=== PATIENT | male | born 1955 | race Caucasian/White ===

== ENCOUNTER 2020-08-07 06:30 | Day surgery (SDC) | payer MEDICARE ==
[2020-08-04 11:50] VITALS: BP 140/80
[2020-08-04 12:20] LABS: BASOPHILS % (AUTO) 1.4 % (0.0-5.0); EOSINOPHILS % (AUTO) 4.7 % (0.0-8.0); HEMATOCRIT 45.2 % (42-54); MEAN CORPUSCULAR HEMOGLOBIN 31.8 pg (27.0-33.0); MEAN CORPUSCULAR HGB CONC 34.1 g/dL (32.0-36.0); MEAN CORPUSCULAR VOLUME 93.2 fL (79-99); MONOCYTES % (AUTO) 9.4 % (3.0-13.0); NEUTROPHILS % (AUTO) 50.3 % (40.0-77.0); PLATELET COUNT (AUTO) 243 K/uL (130-400); RED BLOOD CELL COUNT(AUTO) 4.85 MIL/uL (4.50-6.20); RED CELL DISTRIBUTION WIDTH 13.3 % (11.0-15.5); WHITE BLOOD COUNT (AUTO) 5.1 K/uL (4.8-10.8)
[2020-08-04 12:38] LABS: CREATININE 1.2 mg/dL (0.5-1.5); POTASSIUM 4.7 mmol/L (3.5-5.1)
[~2020-08-07] VITALS: Ht 175.3 cm; Wt 82.0 kg
[2020-08-07] VITALS (13 sets, daily range): BP systolic 118–156; BP diastolic 75–96
[~2020-08-07 06:30] MED LIST: ALBU1.252 IH; CEFTRIAXONE SODIUM 1 GM IVP SCH; FINA5TAB41 PO; FLUT1BLS3 IH; LEVO88TA7 PO; PRAV80TA21 PO; TAMS-1 PO
[2020-08-07] MEDS ORDERED: LACTATED RINGERS 1000ML 1,000 ML IV ONE (07:10)
[2020-08-07] MEDS ORDERED: FENTANYL CITRATE PF 50 MCG/1 ML 2ML VIAL ONE (10:09)
[2020-08-07] MEDS ORDERED: PROPOFOL 10 MG/ML 20ML VIAL IV ONE (10:09)
[2020-08-07] MEDS ORDERED: ROCURONIUM 10MG/1ML SYR 10 MG/ML ML ONE (10:09)
[2020-08-07] MEDS ORDERED: MIDAZOLAM HCL 1 MG/ML 2ML VIAL ONE (10:09)
[2020-08-07] MEDS ORDERED: LIDOCAINE HCL 5% OINT 50GM 1 APPL/GM TUBE TP ONE (10:09)
[2020-08-07] MEDS ORDERED: OPIUM/BELLADONNA ALKALOIDS 1 EACH SUPP.RECT RC ONE (10:48)
[2020-08-07] MEDS ORDERED: GLYCOPYRROLATE 1 MG/5 ML SYRINGE ONE (11:04)
[2020-08-07] MEDS ORDERED: NEOSTIGMINE 5MG/5ML SYR IV ONE (11:05)
[2020-08-07] MEDS ORDERED: MEPERIDINE-PF 25 MG/ML SYG ONE (11:27)
[2020-08-07] MEDS ORDERED: PHENAZOPYRIDINE HCL 200 MG TABLET ONE (12:04)
[2020-08-07] MEDS ORDERED: ACETAMINOPHEN-CODEINE 300/30MG TAB ONE (12:26)
== END 2020-08-07 12:45 | disposition home or self-care (01) ==
LOC: DAH 06:30
PROVIDERS: ATTEND Urology
DX: N40.1 Benign prostatic hyperplasia with lower urinary tract symptoms (principal); Z20.822 Contact with and (suspected) exposure to COVID-19; R39.14 Feeling of incomplete bladder emptying; N13.8 Other obstructive and reflux uropathy; J44.9 Chronic obstructive pulmonary disease, unspecified; E03.9 Hypothyroidism, unspecified; Z79.899 Other long term (current) drug therapy; Z98.890 Other specified postprocedural states; Z79.890 Hormone replacement therapy
CPT/HCPCS: 36415; 52648; 80048; 85025; 93005; A4215; A4221; A4222; A4223 ×2; A4340; A4354; A4358; A4510; A4600; A4663; A5113; A6260; C9803; J0696; J2175; J2250; J2704; J2710; J3490; J7120 ×2; U0003; J3010

== ENCOUNTER 2024-03-01 07:51 | Day surgery (SDC) | payer MEDICARE ==
[2024-02-28 12:45] LABS: BASOPHILS # (AUTO) 0.08 K/uL (0.00-0.20); BASOPHILS % (AUTO) 1.1 % (0.0-5.0); EOSINOPHILS # (AUTO) 0.36 K/uL (0.00-0.70); EOSINOPHILS % (AUTO) 4.8 % (0.0-8.0); HEMATOCRIT 46.2 % (42-54); IMMATURE GRANULOCYTE ABSOLUTE 0.03 K/uL (0-1); LYMPHOCYTES # (AUTO) 1.7 K/uL (1.0-4.8); LYMPHOCYTES % (AUTO) 22.9 % (21.0-51.0); MEAN CORPUSCULAR HEMOGLOBIN 32.1 pg (27.0-33.0); MEAN CORPUSCULAR HGB CONC 32.7 g/dL (32.0-36.0); MEAN CORPUSCULAR VOLUME 98.3 fL (79-99); MONOCYTES # (AUTO) 0.8 K/uL (0.1-1.0); MONOCYTES % (AUTO) 10.1 % (3.0-13.0); NEUTROPHILS # (AUTO) 4.6 K/uL (1.8-7.7); NEUTROPHILS % (AUTO) 60.7 % (40.0-77.0); PLATELET COUNT (AUTO) 243 K/uL (130-400); RED CELL DISTRIBUTION WIDTH 13.3 % (11.0-15.5); WHITE BLOOD COUNT (AUTO) 7.5 K/uL (4.8-10.8)
[2024-02-28 12:57] LABS: CREATININE 1.1 mg/dL (0.5-1.3); POTASSIUM 4.7 mmol/L (3.5-5.1)
[2024-02-28 13:05] VITALS: BP 174/92; PULSE 60; RESP 19; TEMP 97.5
--- NOTE | 2024-02-28 13:51 | EKG ---
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
[~2024-03-01] VITALS: Ht 175.3 cm; Wt 92.4 kg
[2024-03-01] VITALS (12 sets, daily range): BP systolic 117–151; BP diastolic 76–98; PULSE 59–70; RESP 15–18; TEMP 97–97.3
[~2024-03-01 07:51] MED LIST changes: -ALBU1.252 IH; +ALBU90AE IH; -CEFTRIAXONE SODIUM 1 GM IVP SCH; +CETI10TA57 PO; -FINA5TAB41 PO; +FLUT15.845 NS; +IPRA4AER IH; +MULT-1335 PO; +PRED10TA3 PO; +TADA5TAB5 PO; +areds PO
[2024-03-01] MEDS: cefTRIAXone 1G VIAL ONE (08:42)
[2024-03-01] MEDS: LACTATED RINGERS 1000ML 1,000 ML IV ONE (08:42)
[2024-03-01] MEDS ORDERED: LIDOCAINE PF 100MG/5ML (2%) SYRINGE 5ML ONE (09:18)
[2024-03-01] MEDS ORDERED: MIDAZOLAM HCL 1 MG/ML 2ML VIAL ONE (09:19)
[2024-03-01] MEDS ORDERED: ondanSETRON 4MG INJ ONE (09:19)
[2024-03-01] MEDS ORDERED: proPOFol 10 MG/ML 20ML VIAL IV ONE (09:19)
[2024-03-01] MEDS ORDERED: FENTanyl CITRate PF 50 MCG/1 ML 2ML VIAL ONE (09:19)
[2024-03-01] MEDS ORDERED: LIDOCAINE HCL 2% PF 20 ML JEL DISP.SYRIN MM ONE (09:21)
[2024-03-01] MEDS: cefTRIAXone 1G VIAL IVPB ONE (09:40)
--- NOTE | 2024-03-01 10:46 | HMCIMG ---
US TRANSRECTAL REASON: ENLARGED PROSTATE. COMPARISON: None TECHNIQUE: Endovaginal pelvic ultrasound study was performed for prostate biopsy purposes performed by referring physician. FINDINGS: Please see procedure report by referring physician. IMPRESSION: Intraoperative films.
--- NOTE | 2024-03-01 17:44 | OP ---
DATE OF PROCEDURE: 03/01/2024 PREOPERATIVE DIAGNOSES: Elevated PSA and abnormal MRI study. POSTOPERATIVE DIAGNOSES: Elevated PSA and abnormal MRI study. PROCEDURE PERFORMED: Transrectal ultrasound with prostate needle biopsies. ANESTHESIA: Monitored anesthesia care with IV sedation. SURGEON: Yasemin Cha MD PREOPERATIVE INDICATIONS: This is a 68-year-old gentleman who has had chronically fluctuating PSAs. However, following a GreenLight laser vaporization of his prostate, his PSA has improved. This was done several years ago. The patient did have a prostate needle biopsy in June 2018 prior to his GreenLight procedure and these biopsies were negative for malignancy. The patient does have a longstanding history of smoking and is currently diagnosed with COPD and is on home oxygen. He underwent Fleet's enema 2 hours prior to the procedure and has been on a regimen of Augmentin 875 mg p.o. b.i.d. the day prior to the procedure. His preoperative PSA was 12.0 and his MRI showed PIRADS 3 lesions. His preoperative creatinine was 1.1 with a glomerular filtration rate of 73. DESCRIPTION OF PROCEDURE: The patient was brought to the operating room and placed in the lateral decubitus position. This was after adequate anesthesia had been achieved. He underwent a Betadine wash and introduction of a 2% lidocaine jelly into the rectal cavity. Following this, a transrectal probe was inserted and ultrasonography was performed. The patient had an estimated 21.5 grams prostate volume. He underwent biopsy of the standard mapping with 13 cores obtained and extra core being obtained from the left mid apical region where there appeared to be a nodule. He tolerated the procedure well and there were no complications. He was transferred to the recovery room in stable condition. He is to follow up in the office in 10-14 days for his path report and he is to finish his Augmentin and to call the office if he has any fevers. His PSA density was estimated to be about 0.5. TID: [id number] RECEIPT: [id number]
== END 2024-03-01 11:25 | disposition home or self-care (01) ==
LOC: DAH 07:51
PROVIDERS: ATTEND Urology
DX: R97.20 Elevated prostate specific antigen [PSA] (principal); C61 Malignant neoplasm of prostate; N41.1 Chronic prostatitis; J44.9 Chronic obstructive pulmonary disease, unspecified; I25.2 Old myocardial infarction; Z99.81 Dependence on supplemental oxygen; Z87.891 Personal history of nicotine dependence; Z79.899 Other long term (current) drug therapy
CPT/HCPCS: 80048; 85025; 36415; 93005; 55700; 88305; 76872; A6260; J7120; J3010; J2003; J0696 ×2; J2250; J2704; J2405; A4215 ×2; A4649; A4615; A4223; A4222; A4221; A4663; A4510; A4600; J3490